=== PATIENT | female | born 1985 | race Caucasian/White ===

== ENCOUNTER 2016-10-07 23:33 | Emergency (ER) | payer OTHER ==
[~2016-10-07] VITALS: Ht 165.1 cm; Wt 54.4 kg
[2016-10-07] MEDS ORDERED: SPIRONOLACTONE50 MG PO (23:54)
== END 2016-10-08 00:45 | disposition home or self-care (01) ==
LOC: ED 23:33
DX: N89.8 Other specified noninflammatory disorders of vagina (principal); Z88.0 Allergy status to penicillin; Z79.899 Other long term (current) drug therapy; Z90.49 Acquired absence of other specified parts of digestive tract
CPT/HCPCS: 87210; 87491; 87591; 99284

== ENCOUNTER 2017-09-20 14:45 | Emergency (ER) | payer OTHER ==
[~2017-09-20] VITALS: Ht 165.1 cm; Wt 59.0 kg
[~2017-09-20 14:45] MED LIST: SPIRONOLACTONE50 MG PO
[2017-09-20] MEDS ORDERED: MUPIROCIN22 GM TOP (15:24)
== END 2017-09-20 15:42 | disposition home or self-care (01) ==
LOC: ED 14:45
DX: S80.811A Abrasion, right lower leg, initial encounter (principal); Z88.0 Allergy status to penicillin; W22.09XA Striking against other stationary object, initial encounter; Y93.39 Activity, other involving climbing, rappelling and jumping off; Y92.89 Other specified places as the place of occurrence of the external cause; Y99.0 Civilian activity done for income or pay
CPT/HCPCS: 99282

== ENCOUNTER 2018-03-12 12:53 | Emergency (ER) | payer OTHER ==
[~2018-03-12] VITALS: Ht 165.1 cm; Wt 59.0 kg
[~2018-03-12 12:53] MED LIST changes: +MUPIROCIN22 GM TOP
[2018-03-12] MEDS ORDERED: NORCO 5-325 TA1 EACH PO (13:21)
[2018-03-12] MEDS ORDERED: DEXAMETHASONE1 MG PO (13:22)
[2018-03-12] MEDS ORDERED: INDOMETHACIN50 MG PO (14:19)
[2018-03-12] MEDS ORDERED: ULTRAM50 MG PO (14:19)
== END 2018-03-12 14:29 | disposition home or self-care (01) ==
LOC: ED 12:53
DX: M51.26 Other intervertebral disc displacement, lumbar region (principal); Z90.49 Acquired absence of other specified parts of digestive tract; Z88.0 Allergy status to penicillin; Z79.899 Other long term (current) drug therapy
CPT/HCPCS: 99283

== ENCOUNTER 2018-03-18 12:09 | Emergency (ER) | payer OTHER ==
[~2018-03-18] VITALS: Ht 165.1 cm; Wt 59.0 kg
[~2018-03-18 12:09] MED LIST changes: +DEXAMETHASONE1 MG PO; +INDOMETHACIN50 MG PO; +NORCO 5-325 TA1 EACH PO; +ULTRAM50 MG PO
--- OUTSIDE RECORDS SUMMARY | 2018-03-18 12:12 | XMS ---
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 Shun has no Care Guidelines for this patient. Eliu VISIT COUNT (12 MO.) [address] [facility] [place] TOTAL 4 NOTE: Visits indicate total known visits. ED/C VISIT TRACKING (12 MO.) 03/18/2018 12:[address] [facility] [place] TYPE: Emergency COMPLAINT: - VOMITING 03/12/2018 12:54 [facility] [place] TYPE: Emergency COMPLAINT: - BACK PAIN,NON INJURY DIAGNOSES: - Other intervertebral disc displacement, lumbar region - Other superintendent container terminal (current) drug therapy - Allergy status to penicillin - Low back pain - Acquired absence of other specified parts of digestive tract 01/29/2018 06:21 [facility] [place] TYPE: Emergency COMPLAINT: - EXTREMITY INJURY DIAGNOSES: - Laceration without foreign body, right lower leg, initial encounter - Fall on same level from slipping, tripping and stumbling with subsequent striking against other object, initial encounter - Allergy status to penicillin 09/20/2017 14:46 [facility] [place] TYPE: Emergency COMPLAINT: - EXTREMITY PAIN/INJURY DIAGNOSES: - Activity, other involving climbing, rappelling and jumping off - Allergy status to penicillin - Other specified places as the place of occurrence of the external cause - Unspecified injury of right lower leg, initial encounter - Striking against other stationary object, initial encounter - Abrasion, right lower leg, initial encounter - Civilian activity done for income or pay INPATIENT VISIT TRACKING (12 MO.) No inpatient visits to display in this time frame [email or web address]
[2018-03-18] MEDS ORDERED: KETOROLAC TROME10 MG PO (13:38)
[2018-03-18] MEDS ORDERED: ONDANSETRON ODT8 MG PO (13:38)
== END 2018-03-18 13:52 | disposition home or self-care (01) ==
LOC: ED 12:09
DX: R51 Headache (principal); R11.2 Nausea with vomiting, unspecified; Z90.49 Acquired absence of other specified parts of digestive tract; Z88.0 Allergy status to penicillin
CPT/HCPCS: 80053; 82150; 83690; 84703; 85025; 96361; 96374; 96375; 99284-25; J1200; J1885; J2765; J7030

== ENCOUNTER 2019-02-01 09:27 | Emergency (ER) | payer OTHER ==
[~2019-02-01] VITALS: Ht 165.1 cm; Wt 56.7 kg
[~2019-02-01 09:27] MED LIST changes: +KETOROLAC TROME10 MG PO; +ONDANSETRON ODT8 MG PO
--- OUTSIDE RECORDS SUMMARY | 2019-02-01 09:30 | XMS ---
PreManage Notification: SUYAPA CUMMINGS Security Jewelry Designer Events No recent Security Events currently on file CRITERIA MET - [facility] CARE PROVIDERS There are no care providers on record at this time. Shun has no Care Guidelines for this patient. Eliu VISIT COUNT (12 MO.) 3 [facility] TOTAL 3 NOTE: Visits indicate total known visits. ED/C VISIT TRACKING (12 MO.) 02/01/2019 09:28 [facility] [place] TYPE: Emergency COMPLAINT: - RIGHT FOOT PAIN/WEAKNESS 03/18/2018 12:10 [facility] [place] TYPE: Emergency COMPLAINT: - VOMITING DIAGNOSES: - Headache - Acquired absence of other specified parts of digestive tract - Allergy status to penicillin - Nausea with vomiting, unspecified 03/12/2018 12:54 [facility] [place] TYPE: Emergency COMPLAINT: - BACK PAIN,NON INJURY DIAGNOSES: - Other intervertebral disc displacement, lumbar region - Other penitentiary (current) drug therapy - Allergy status to penicillin - Low back pain - Acquired absence of other specified parts of digestive tract INPATIENT VISIT TRACKING (12 MO.) No inpatient visits to display in this time frame [email or web address]
[2019-02-01] MEDS ORDERED: PREGABALIN50 MG PO (09:53)
[2019-02-01] MEDS ORDERED: NORCO 5-325 TA1 EACH PO (09:56)
== END 2019-02-01 10:24 | disposition home or self-care (01) ==
LOC: ED 09:27
DX: M54.31 Sciatica, right side (principal); Z88.0 Allergy status to penicillin
CPT/HCPCS: 99284

== ENCOUNTER 2019-02-02 07:00 | Emergency (ER) | payer OTHER ==
[~2019-02-02] VITALS: Ht 165.1 cm; Wt 56.7 kg
[~2019-02-02 07:00] MED LIST changes: +PREGABALIN50 MG PO
--- OUTSIDE RECORDS SUMMARY | 2019-02-02 07:04 | XMS ---
PreManage Notification: SUYAPA CUMMINGS Security Corporate Executive Events No recent Security Events currently on file CRITERIA MET - [facility] - 2 Visits in 30 Days CARE PROVIDERS There are no care providers on record at this time. Shun has no Care Guidelines for this patient. Eliu VISIT COUNT (12 MO.) 4 [facility] [place] TOTAL 4 NOTE: Visits indicate total known visits. ED/[facility] VISIT TRACKING (12 MO.) 02/02/2019 07:01 [facility] [place] TYPE: Emergency COMPLAINT: - NUMBNESS AND WEAKNESS, RIGHT FOOT 02/01/2019 09:28 [facility] [place] TYPE: Emergency [...] intervertebral disc displacement, lumbar region - Other emt intermediate (current) drug therapy - Allergy status to penicillin - Low back pain - Acquired absence of other specified parts of digestive tract INPATIENT VISIT TRACKING (12 MO.) No inpatient visits to display in this time frame [email or web address]
== END 2019-02-02 07:40 | disposition home or self-care (01) ==
LOC: ED 07:00
DX: G57.01 Lesion of sciatic nerve, right lower limb (principal); Z88.0 Allergy status to penicillin; Z79.899 Other long term (current) drug therapy
CPT/HCPCS: 99283

== ENCOUNTER 2023-01-26 05:12 | Emergency (ER) | payer OTHER ==
[~2023-01-26] VITALS: Ht 165.1 cm; Wt 61.4 kg
[2023-01-26] MEDS ORDERED: TIZANIDINE HCL2 MG (05:26)
[2023-01-26] MEDS ORDERED: CYMBALTA20 MG (05:26)
[2023-01-26] MEDS ORDERED: DOXYCYCLINE HY100 MG PO (05:28)
[2023-01-26 05:36] VITALS: BP 122/80
== END 2023-01-26 05:36 | disposition home or self-care (01) ==
LOC: ED 05:12
DX: L03.032 Cellulitis of left toe (principal); Z88.0 Allergy status to penicillin; Z88.3 Allergy status to other anti-infective agents; Z79.899 Other long term (current) drug therapy
CPT/HCPCS: 99283

== ENCOUNTER 2024-09-09 12:21 | Emergency (ER) | payer OTHER ==
[~2024-09-09] VITALS: Ht 165.1 cm; Wt 58.3 kg
[~2024-09-09 12:21] MED LIST changes: +CYMBALTA20 MG PO; +DOXYCYCLINE HY100 MG PO; +TIZANIDINE HCL2 MG PO
[2024-09-09] MEDS ORDERED: BUDESONIDE0.5 MG/2 M INH (12:40)
[2024-09-09] MEDS ORDERED: DIAZEPAM2 MG PO (12:42)
[2024-09-09] MEDS ORDERED: METHYLPREDNISOLO4 M1 PO (14:56)
[2024-09-09] MEDS ORDERED: NEURONTIN300 MG PO (14:56)
[2024-09-09 15:26] VITALS: BP 113/82
== END 2024-09-09 15:27 | disposition home or self-care (01) ==
LOC: ED 12:21
DX: M54.16 Radiculopathy, lumbar region (principal); J45.909 Unspecified asthma, uncomplicated; Z79.51 Long term (current) use of inhaled steroids; Z79.899 Other long term (current) drug therapy; Z88.0 Allergy status to penicillin; Z88.8 Allergy status to other drugs, medicaments and biological substances
CPT/HCPCS: 72148; 99283-25